=== PATIENT | female | born 1980 | race Caucasian/White ===

== ENCOUNTER 2019-08-07 12:55 | Emergency (ER) | payer MEDICAID, OTHER ==
[~2019-08-07] VITALS: Ht 177.8 cm; Wt 77.3 kg
[2019-08-07] MEDS ORDERED: FERR325T3 (13:05)
[2019-08-07] MEDS ORDERED: VENL37.598 (13:05)
[2019-08-07] MEDS ORDERED: ACETAMINOPHEN 325 MG TAB PO ONE (14:00)
[2019-08-07 14:39] LABS: HEMATOCRIT 41.4 % (36.0-47.0); HEMOGLOBIN 12.6 g/dl (12.0-15.5); MEAN CORPUSCULAR HEMOGLOBIN 23.3 pg (27.0-33.0); MEAN CORPUSCULAR HGB CONC 30.4 g/dl (32.0-36.5); MEAN CORPUSCULAR VOLUME 76.7 fl (80.0-96.0); PLATELET COUNT, AUTOMATED 306 10^3/uL (150-450); WHITE BLOOD COUNT 3.8 10^3/uL (4.0-10.0)
[2019-08-07 14:49] LABS: INR 1.06; PROTHROMBIN TIME 13.5 SECONDS (11.8-14.0)
[2019-08-07 15:20] LABS: ALBUMIN 4.4 GM/DL (3.2-5.2); ALT/SGPT 40 U/L (12-78); BILIRUBIN,DIRECT < 0.1 MG/DL (0.0-0.2); BILIRUBIN,TOTAL 0.2 MG/DL (0.2-1.0); BLOOD UREA NITROGEN 8 MG/DL (7-18); CALCIUM LEVEL 9.8 MG/DL (8.5-10.1); CARBON DIOXIDE LEVEL 27 MEQ/L (21-32); CHLORIDE LEVEL 104 MEQ/L (98-107); CREATININE FOR GFR 0.76 MG/DL (0.55-1.30); GLOMERULAR FILTRATION RATE > 60.0 (>60); GLUCOSE, FASTING 87 MG/DL (70-100); SODIUM LEVEL 138 MEQ/L (136-145); TOTAL PROTEIN 8.2 GM/DL (6.4-8.2)
--- NOTE | 2019-08-07 15:58 | REP ---
MRI lumbar spine without contrast: History: Loss of control of bowel and bladder. Weakness on the right. History of surgery due to prior cauda equina in 2014. No comparison images. Technique: Sagittal and axial T1 and T2-weighted scans are acquired in the usual fashion with and without fat saturation. Sequences include spin echo, turbo spin-echo, and STIR imaging sequences. MRI findings: No extra spinal abnormalities observed. The tip of the conus medullaris is normal in position and appearance at T12-L1. Lumbar vertebral body heights are preserved. Alignment is normal. There is no evidence of spondylolysis or spondylolisthesis. At L5-S1, there is degenerative narrowing of the disc. A right laminectomy defect is observed with post laminectomy enlargement of the thecal sac on the right side dorsal aspect. There are post discectomy changes in the right dorsal L5-S1 disc which is partially fused. There is discogenic spurring and mild diffuse disc bulging subtly indenting the ventral margin of the thecal sac. No nerve root displacement or compression is seen. Some granulation tissue is suspected on the right lateral aspect of the thecal sac just dorsal to the right S1 root. No deformity. There is facet hypertrophy bilaterally. There is minimal foraminal narrowing right greater than left. At L4-L5, there is mild decreased disc space height and signal intensity. Mild diffuse disc bulging is seen. There is facet hypertrophy bilaterally. No nerve root compression is appreciated. At L3-4 and L2-3 as well as at L1-2, there is no disc protrusion, central canal stenosis or foraminal narrowing. Impression: Post laminectomy changes on the right at L5-S1. There is some right lateral granulation tissue at this level. Facet hypertrophy is present and there is mild bilateral foraminal stenosis at L5-S1. Mild degenerative disc changes and facet changes are noted at L4-5 as well. Otherwise negative. Electronically Signed by Pranav Guerrero MD 08/07/2019 04:43 P
[2019-08-07] MEDS ORDERED: MORPHINE 2 MG/ML 1ML VIAL (J2270) IV ONE (16:30)
[2019-08-07 17:21] VITALS: BP 120/80
--- NOTE | 2019-08-12 13:23 | ED PDOC ---
Post-Departure Follow-Up [facility] faxed formal report of mri ls spine for fu Lai Shrestha MD Aug 12, 2019 13:23
== END 2019-08-07 17:25 | disposition home or self-care (01) ==
LOC: M ED 12:55
DX: M54.16 Radiculopathy, lumbar region (principal); Z88.8 Allergy status to other drugs, medicaments and biological substances
CPT/HCPCS: 72148; 80048; 80076; 85027; 85610; 96374; 96375; 99284; J2270; J3360

== ENCOUNTER 2019-09-02 10:05 | Observation (INO) | payer MEDICAID ==
[~2019-09-02] VITALS: Ht 177.8 cm; Wt 90.0 kg
[~2019-09-02 10:05] MED LIST: EFFE75CA2 PO; FERR325T3; IRON325T9 PO; LARI1TAB3 PO; LIDOCAINE 2% INJ 100 MG/5 ML SDV (FOR ANES.) As Ordered ONE; MIRA3350 PO; NS 1,000 ML IV ONE; PROPOFOL 200 MG/20 ML VIAL As Ordered ONE; TESS100C PO; TIZA6CAP6 PO; VENL37.598
[2019-09-02] MEDS ORDERED: fentaNYL 100 MCG/2 ML INJECTION (J3010) As Ordered ONE (10:54)
[2019-09-02] MEDS ORDERED: MIDAZOLAM INJ 2 MG/2 ML VIAL (J2250) As Ordered ONE (11:00)
[2019-09-02] MEDS ORDERED: PROPOFOL 200 MG/20 ML VIAL As Ordered ONE ×2 (11:16→11:30)
[2019-09-02] MEDS ORDERED: ONDANSETRON 4MG/2ML VIAL (J2405) As Ordered ONE (11:22)
[2019-09-02] MEDS ORDERED: METOCLOPRAMIDE INJ 10MG/2ML VIAL (J2765) As Ordered ONE (11:22)
--- NOTE | 2019-09-02 11:46 | ROOR ---
Patient Name: Kizzy Carrera Procedure Date: 09/02/2019 10:47 AM Date of : 1980 Age: 39 Room: [facility] Gender: Female Note Status: Finalized Procedure: Upper GI endoscopy Indications: Iron deficiency anemia, Dyspepsia Providers: Gorge Pichardo MD Referring MD: AYAD LINARES MD Requesting Provider: Medicines: Monitored Anesthesia Care Complications: No immediate complications. Procedure: Pre-Anesthesia Assessment: - Prior to the procedure, a History and Physical was performed, and patient medications and allergies were reviewed. The patient is competent. The risks and benefits of the procedure and the sedation options and risks were discussed with the patient. All questions were answered and informed consent was obtained. Patient identification and proposed procedure were verified by the physician, the nurse and the anesthesiologist in the procedure room. Mental Status Examination: alert and oriented. Airway Examination: normal oropharyngeal airway and neck mobility. Respiratory Examination: clear to auscultation. CV Examination: normal. Prophylactic Antibiotics: The patient does not require prophylactic antibiotics. Prior Anticoagulants: The patient has taken no previous anticoagulant or antiplatelet agents. ASA Grade Assessment: II - A patient with mild systemic disease. After reviewing the risks and benefits, the patient was deemed in satisfactory condition to undergo the procedure. The anesthesia plan was to use monitored anesthesia care (MAC). Immediately prior to administration of medications, the patient was re-assessed for adequacy to receive sedatives. The heart rate, respiratory rate, oxygen saturations, blood pressure, adequacy of pulmonary ventilation, and response to care were monitored throughout the procedure. The physical status of the patient was re-assessed after the procedure. The Endoscope was introduced through the mouth, and advanced to the second part of duodenum. The upper GI endoscopy was accomplished without difficulty. The patient tolerated the procedure well. Findings: The examined esophagus was normal. The Z-line was regular and was found 39 cm from the incisors. Scattered mild inflammation characterized by erythema and granularity was found in the gastric antrum. Biopsies were taken with a cold forceps for Helicobacter pylori testing. Verification of patient identification for the specimen was done by the physician and nurse using the patient's name, date and medical record number. Estimated blood loss was minimal. The duodenal bulb and second portion of the duodenum were normal. Biopsies for histology were taken with a cold forceps for evaluation of celiac disease. Impression: - Normal esophagus. - Z-line regular, 39 cm from the incisors. - Gastritis. Biopsied. - Normal duodenal bulb and second portion of the duodenum. Biopsied. Recommendation: - Patient has a contact number available for emergencies. The signs and symptoms of potential delayed complications were discussed with the patient. Return to normal activities tomorrow. Written discharge instructions were provided to the patient. - Resume previous diet. - Continue present medications. - Await pathology results. - Telephone GI clinic for pathology results in 2 weeks. - Return to primary care physician. Gorge Pichardo MD Gorge Pichardo MD 09/02/2019 11:46:28 AM Electronically signed by Gorge Pichardo MD Number of Addenda: 0 Note Initiated On: 09/02/2019 10:47 AM Estimated Blood Loss: Estimated blood loss was minimal.
--- NOTE | 2019-09-02 12:43 | ROOR ---
Patient Name: Kizzy Carrera Procedure Date: 09/02/2019 10:48 AM Date of : 1980 Age: 39 Room: [facility] Gender: Female Note Status: Finalized Procedure: Colonoscopy Indications: Clinically significant diarrhea of unexplained origin Providers: Gorge Pichardo MD Referring MD: AYAD LINARES MD Requesting Provider: Medicines: Monitored Anesthesia Care Complications: No immediate complications. Procedure: Pre-Anesthesia Assessment: - Prior to the procedure, a History and Physical was performed, and patient medications and allergies were reviewed. The patient is competent. The risks and benefits of the procedure and the sedation options and risks were discussed with the patient. All questions were answered and informed consent was obtained. Patient identification and proposed procedure were verified by the physician, the nurse and the anesthesiologist in the procedure room. Respiratory Examination: clear to auscultation. CV Examination: normal. Prophylactic Antibiotics: The patient does not require prophylactic antibiotics. Prior Anticoagulants: The patient has taken no previous anticoagulant or antiplatelet agents. ASA Grade Assessment: II - A patient with mild systemic disease. After reviewing the risks and benefits, the patient was deemed in satisfactory condition to undergo the procedure. The anesthesia plan was to use monitored anesthesia care (MAC). Immediately prior to administration of medications, the patient was re-assessed for adequacy to receive sedatives. The heart rate, respiratory rate, oxygen saturations, blood pressure, adequacy of pulmonary ventilation, and response to care were monitored throughout the procedure. The physical status of the patient was re-assessed after the procedure. The Colonoscope was introduced through the anus and advanced to the terminal ileum, with identification of the appendiceal orifice and IC valve. The colonoscopy was performed without difficulty. The patient tolerated the procedure well. The quality of the bowel preparation was good. The terminal ileum, ileocecal valve, appendiceal orifice, and rectum were photographed. Scope insertion time was 3 minutes. Scope withdrawal time was 9 minutes. The total duration of the procedure was 12 minutes. Findings: The perianal and digital rectal examinations were normal. The terminal ileum appeared normal. Normal mucosa was found in the entire colon. Biopsies for histology were taken with a cold forceps from the right colon, left colon and rectosigmoid colon for evaluation of microscopic colitis. Verification of patient identification for the specimen was done by the physician and nurse using the patient's name, date and medical record number. Estimated blood loss was minimal. Multiple small and large-mouthed diverticula were found from sigmoid to descending colon. There was no evidence of diverticular bleeding. Non-bleeding external and internal hemorrhoids were found during retroflexion. The hemorrhoids were small. Impression: - The examined portion of the ileum was normal. - Normal mucosa in the entire examined colon. Biopsied. - Moderate diverticulosis from sigmoid to descending colon. There was no evidence of diverticular bleeding. - Non-bleeding external and internal hemorrhoids. Recommendation: - Patient has a contact number available for emergencies. The signs and symptoms of potential delayed complications were discussed with the patient. Return to normal activities tomorrow. Written discharge instructions were provided to the patient. - High fiber diet. - Continue present medications. - Await pathology results. - Repeat colonoscopy at age 52 for screening purposes. - Telephone GI clinic for pathology results in 2 weeks. - Return to primary care physician. Gorge Pichardo MD Gorge Pichardo MD 09/02/2019 12:43:10 PM Electronically signed by Gorge Pichardo MD Number of Addenda: 0 Note Initiated On: 09/02/2019 10:48 AM Estimated Blood Loss: Estimated blood loss was minimal.
--- NOTE | 2019-09-02 13:48 | REP ---
Clinical: shortness of breath. Comparison: none. Findings: The mediastinum and cardiac silhouette are stable and within normal limits for portable technique. The lung garcia are clear without acute consolidation, effusion, or pneumothorax. Skeletal structures are intact. Impression: No acute cardiopulmonary process appreciated. Electronically Signed by Mike Lee MD 09/02/2019 01:40 P
[2019-09-02] MEDS ORDERED: LORazepam 2 MG TAB PO ONE (14:00)
[2019-09-02] MEDS ORDERED: hydrOXYzine 50 MG TAB PO PRN (15:30)
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
[2019-09-02 15:49] VITALS: BP 150/100
[2019-09-02 15:50] VITALS: BP 185/96
[2019-09-02 15:51] VITALS: BP 151/93
[2019-09-02 15:57] LABS: BASO # 0.1 10^3/uL (0.0-0.2); BASO % 0.7 % (0.0-1.0); EOS # 0.1 10^3/uL (0.0-0.5); EOS % 1.5 % (0.0-3.0); HEMATOCRIT 39.9 % (36.0-47.0); HEMOGLOBIN 12.3 g/dl (12.0-15.5); LYMPH # 1.4 10^3/uL (1.5-5.0); LYMPH % 19.8 % (24.0-44.0); MEAN CORPUSCULAR HEMOGLOBIN 24.2 pg (27.0-33.0); MEAN CORPUSCULAR HGB CONC 30.8 g/dl (32.0-36.5); MEAN CORPUSCULAR VOLUME 78.4 fl (80.0-96.0); MONO # 0.5 10^3/uL (0.0-0.8); MONO % 6.6 % (0.0-5.0); NEUTROPHILS # 4.9 10^3/uL (1.5-8.5); NEUTROPHILS % 71.1 % (36.0-66.0); PLATELET COUNT, AUTOMATED 301 10^3/uL (150-450); RED BLOOD COUNT 5.09 10^6/uL (4.00-5.40); WHITE BLOOD COUNT 6.8 10^3/uL (4.0-10.0)
[2019-09-02 16:00] VITALS: BP 150/100
[2019-09-02] MEDS ORDERED: amLODIPine 5 MG TAB PO ONE (16:00)
[2019-09-02 16:23] LABS: ALBUMIN 4.1 GM/DL (3.2-5.2); ALT/SGPT 20 U/L (12-78); BILIRUBIN,TOTAL 0.3 MG/DL (0.2-1.0); BLOOD UREA NITROGEN 4 MG/DL (7-18); CARBON DIOXIDE LEVEL 27 MEQ/L (21-32); CHLORIDE LEVEL 106 MEQ/L (98-107); CK-MB VALUE MASS < 1.0 NG/ML (<3.6); CPK CREATINE PHOSPHOKINASE 59 U/L (26-192); CREATININE FOR GFR 0.64 MG/DL (0.55-1.30); GLOMERULAR FILTRATION RATE > 60.0 (>60); GLUCOSE, FASTING 94 MG/DL (70-100); LIPASE 70 U/L (73-393); MAGNESIUM LEVEL 2.3 MG/DL (1.8-2.4); MB/CK RELATIVE INDEX 1.69 (< OR =4); POTASSIUM SERUM 3.6 MEQ/L (3.5-5.1); SODIUM LEVEL 140 MEQ/L (136-145); TOTAL PROTEIN 7.2 GM/DL (6.4-8.2); TROPONIN I < 0.02 NG/ML (< 0.10)
[2019-09-02] MEDS: NS 1,000 ML IV SCH (16:30)
[2019-09-02] MEDS ORDERED: hydrOXYzine 50 MG TAB PO ONE (18:15)
[2019-09-02] MEDS: tiZANidine 4 MG TAB PO PRN (18:23)
[2019-09-02] MEDS ORDERED: SLF 3 ML SYR IV PRN (18:30)
[2019-09-02] MEDS: SLF 3 ML SYR IV SCH (19:37)
--- NOTE | 2019-09-02 19:53 | ECGEPIP ---
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
[2019-09-02 20:00] VITALS: BP 125/61
[2019-09-02] MEDS: HEPARIN SOD (PORCINE) 5000 UNITS/ML VIAL SC SCH (21:17)
[2019-09-02] MEDS: RAMELTEON 8 MG TAB (ROZEREM) PO SCH (21:17)
[2019-09-02 22:32] LABS: CK-MB VALUE MASS < 1.0 NG/ML (<3.6); CPK CREATINE PHOSPHOKINASE 56 U/L (26-192); MB/CK RELATIVE INDEX 1.79 (< OR =4); TROPONIN I < 0.02 NG/ML (< 0.10)
[2019-09-02 23:59] VITALS: BP 132/73
[2019-09-03] VITALS (11 sets, daily range): BP systolic 106–162; BP diastolic 55–92
[2019-09-03] MEDS: hydrOXYzine 50 MG TAB PO PRN ×4 (00:23→18:20)
[2019-09-03] MEDS: tiZANidine 4 MG TAB PO PRN ×2 (00:23→09:19)
[2019-09-03 03:21] LABS: BASO # 0.1 10^3/uL (0.0-0.2); BASO % 0.9 % (0.0-1.0); EOS # 0.3 10^3/uL (0.0-0.5); EOS % 4.4 % (0.0-3.0); HEMATOCRIT 36.4 % (36.0-47.0); HEMOGLOBIN 11.4 g/dl (12.0-15.5); LYMPH # 1.8 10^3/uL (1.5-5.0); LYMPH % 31.4 % (24.0-44.0); MEAN CORPUSCULAR HEMOGLOBIN 24.6 pg (27.0-33.0); MEAN CORPUSCULAR HGB CONC 31.3 g/dl (32.0-36.5); MEAN CORPUSCULAR VOLUME 78.6 fl (80.0-96.0); MONO # 0.6 10^3/uL (0.0-0.8); MONO % 9.8 % (0.0-5.0); NEUTROPHILS % 53.3 % (36.0-66.0); PLATELET COUNT, AUTOMATED 288 10^3/uL (150-450); RED BLOOD COUNT 4.63 10^6/uL (4.00-5.40); WHITE BLOOD COUNT 5.7 10^3/uL (4.0-10.0)
[2019-09-03 03:53] LABS: BLOOD UREA NITROGEN 7 MG/DL (7-18); CALCIUM LEVEL 8.3 MG/DL (8.5-10.1); CARBON DIOXIDE LEVEL 26 MEQ/L (21-32); CHLORIDE LEVEL 108 MEQ/L (98-107); CK-MB VALUE MASS < 1.0 NG/ML (<3.6); CPK CREATINE PHOSPHOKINASE 42 U/L (26-192); CREATININE FOR GFR 0.76 MG/DL (0.55-1.30); GLOMERULAR FILTRATION RATE > 60.0 (>60); GLUCOSE, FASTING 138 MG/DL (70-100); MAGNESIUM LEVEL 2.1 MG/DL (1.8-2.4); MB/CK RELATIVE INDEX 2.38 (< OR =4); POTASSIUM SERUM 3.6 MEQ/L (3.5-5.1); SODIUM LEVEL 142 MEQ/L (136-145); TROPONIN I < 0.02 NG/ML (< 0.10)
[2019-09-03] MEDS: SLF 3 ML SYR IV SCH ×3 (04:25→20:28)
[2019-09-03] MEDS: NS 1,000 ML IV SCH ×2 (05:25→17:05)
[2019-09-03] MEDS: HEPARIN SOD (PORCINE) 5000 UNITS/ML VIAL SC SCH ×3 (05:26→20:27)
--- NOTE | 2019-09-03 06:45 | ECHO ---
DATE OF PROCEDURE: 09/02/2019 REFERRING PHYSICIAN: Franny Esquivel MD INDICATION: Syncope. HEIGHT: 178 cm. WEIGHT: 77 kg. DIMENSIONS: IVS 1.3 LV 4.6 LVPW 1.2 LA 3.4 Aorta 2.9 IVC 1.7 Mitral E wave velocity 85, A-wave 80 E prime septal 8.0 E prime lateral 11.5 FINDINGS: The study is of acceptable technical quality. The patient is in sinus rhythm. Left ventricle is normal size and systolic function with estimated LVEF 65-70%. Mild LVH is noted. Right ventricle is normal size and systolic function. Both atria appear normal. All four cardiac valves were reasonably well seen and appear normal. Trivial pericardial effusion is noted. Inferior vena cava is normal size. Aortic root, aortic arch and visualized segment of abdominal aorta appear normal. Doppler interrogation reveals competent aortic valve. There is trace mitral, tricuspid and pulmonic insufficiency. Mitral inflow pattern and tissue Doppler imaging of mitral annulus reveal normal diastolic function. CONCLUSIONS: 1. Study is of acceptable technical quality, the patient is in sinus rhythm. 2. Normal LV size with mild LVH and preserved LV systolic and diastolic function. 3. No hemodynamically significant valvular disease. 4. Likely normal central venous pressure. Unable to estimate pulmonary artery pressure. 5. Trivial pericardial effusion. COMMENTS: SBE prophylaxis is not recommended. No findings to explain syncopal event. MTDD
[2019-09-03] MEDS ORDERED: VENLAFAXINE 37.5 MG TAB PO SCH (09:00)
[2019-09-03] MEDS: amLODIPine 5 MG TAB PO SCH (09:19)
--- NOTE | 2019-09-03 12:26 | IPNPDOC ---
Text Note Date of Service The patient was seen on 09/03/19. NOTE Subjective: Patient is a 39-year-old female with past history of vWF deficiency, anxiety and PTSD who presented to [facility] for an elective EGD and colonoscopy with Dr. Pichardo. Patient arrived to the procedure, at 10:15 AM and had a blood pressure of 170s over 100 procedure started at patient received 1000 mg of propofol, 50 g of fentanyl, and 2 mg Versed to keep her sedated. Procedure was uneventful and completed as planned. Postprocedure, patient immediately woke up despite large doses of sedatives. Patient was found to have a systolic blood pressure 200s and had had some improvement down to 170s. Patient was subsequently discharged. Upon sitting up in bed. Patient had felt weak and passed out while in the stretcher. . There is no head trauma and patient immediately awoke. Patient does not remember the events entirely. Patient has reported episodes of passing out several times over the last week. Patient was seen and examined at the bedside. Patient reports that she feels better this morning. However, when working with physical therapy she described lightheadedness. She denies any chest pain, shortness of breath or palpitations. Denies nausea, vomiting, abdominal pain, constipation, or urinary discomfort. Objective: Vitals (See below) General: Lying in bed, no acute distress, comfortable, AAOx3 HEENT: NC, AT CVS: RRR, +S1S2 Lungs: Fair air entry b/l, auscultation is without rhonchi, rales or wheezing Abdomen: Soft, nondistended and nontender Extremities: - Edema, - Calf tenderness Assessment and plan: Syncope - likely 2/2 orthostatic hypotension - likely 2/2 Venlafaxine - Patient was reported to have a syncopal episode after standing up post- procedure in the recovery room - CXR 09/02: No acute cardiopulmonary process appreciated. - EKG was reviewed by myself and does not reveal any ischemic changes - Lab work is benign - Troponin x 3 negative - ECHO 09/02: Normal systolic and diastolic function, normal CVP, chills. Review pericardial effusion - c/w Telemetry monitoring - s/p Venlafaxine - c/w IV fluid hydration - c/w PT tomorrow s/p Hypertensive urgency - BP was significantly elevated at 170s; currently remains well controlled - Patient has not been on any medications as an outpatient - c/w Amlodipine Anxiety - c/w Venlafaxine from home - Has a history of being on Xanax 1mg; however has not been prescribed this since 05/[address] Arana in [place] - c/w Hydroxyzine alone at this time DVT prophylaxis - c/w Heparin Disposition: - Anticipate discharge tomorrow morning VS,Richardbone, I+O VS, Richardbone, I+O Laboratory Tests 09/02/19 15:42 09/03/19 03:11 Vital Signs Date Time Temp Pulse Resp B/P (MAP) Pulse Ox O2 Delivery O2 Flow Rate FiO2 09/03/19 08:00 97.1 80 17 131/72 (91) 98 Room Air 09/02/19 15:30 2 I&O- Last 24 Hours up to 6 AM 09/03/19 06:00 Intake Total 1960 ml Balance 1960 ml EDY LINARES MD Sep 03, 2019 12:26
[2019-09-03] MEDS ORDERED: tiZANidine 4 MG TAB PO ONE ×2 (17:30→21:00)
[2019-09-03] MEDS: ACETAMINOPHEN TAB 650MG DOSE (2X325MG) PO PRN (17:42)
[2019-09-03] MEDS: RAMELTEON 8 MG TAB (ROZEREM) PO SCH (20:28)
[2019-09-03] MEDS ORDERED: PILL CUTTER 1 EACH XX PRN (21:00)
[2019-09-04] MEDS: hydrOXYzine 50 MG TAB PO PRN ×2 (01:32→08:58)
[2019-09-04] MEDS: NS 1,000 ML IV SCH (03:00)
[2019-09-04 04:00] VITALS: BP 140/90
[2019-09-04] MEDS: SLF 3 ML SYR IV SCH (05:21)
[2019-09-04] MEDS: HEPARIN SOD (PORCINE) 5000 UNITS/ML VIAL SC SCH (05:21)
[2019-09-04 05:51] LABS: BASO # 0.1 10^3/uL (0.0-0.2); EOS # 0.3 10^3/uL (0.0-0.5); EOS % 5.8 % (0.0-3.0); HEMATOCRIT 36.8 % (36.0-47.0); HEMOGLOBIN 11.1 g/dl (12.0-15.5); LYMPH # 1.8 10^3/uL (1.5-5.0); LYMPH % 36.9 % (24.0-44.0); MEAN CORPUSCULAR HEMOGLOBIN 24.2 pg (27.0-33.0); MEAN CORPUSCULAR HGB CONC 30.2 g/dl (32.0-36.5); MEAN CORPUSCULAR VOLUME 80.2 fl (80.0-96.0); MONO # 0.4 10^3/uL (0.0-0.8); MONO % 8.9 % (0.0-5.0); NEUTROPHILS # 2.3 10^3/uL (1.5-8.5); NEUTROPHILS % 47.2 % (36.0-66.0); PLATELET COUNT, AUTOMATED 247 10^3/uL (150-450); RED BLOOD COUNT 4.59 10^6/uL (4.00-5.40); WHITE BLOOD COUNT 4.8 10^3/uL (4.0-10.0)
[2019-09-04 06:12] LABS: BLOOD UREA NITROGEN 7 MG/DL (7-18); CALCIUM LEVEL 8.7 MG/DL (8.5-10.1); CARBON DIOXIDE LEVEL 23 MEQ/L (21-32); CHLORIDE LEVEL 110 MEQ/L (98-107); CREATININE FOR GFR 0.62 MG/DL (0.55-1.30); GLOMERULAR FILTRATION RATE > 60.0 (>60); GLUCOSE, FASTING 94 MG/DL (70-100); MAGNESIUM LEVEL 1.7 MG/DL (1.8-2.4); POTASSIUM SERUM 3.7 MEQ/L (3.5-5.1); SODIUM LEVEL 140 MEQ/L (136-145)
[2019-09-04 07:27] VITALS: BP 134/79
[2019-09-04] MEDS ORDERED: MAGNESIUM OXIDE 400 MG TAB (MAG-OX) PO ONE (08:00)
[2019-09-04] MEDS ORDERED: TIZA6CAP6 PO (08:25)
[2019-09-04] MEDS ORDERED: HYDR100C PO (08:26)
[2019-09-04] MEDS ORDERED: AMLO5TAB6 PO (08:26)
[2019-09-04] MEDS ORDERED: TIZA6CAP PO (08:27)
[2019-09-04 08:59] VITALS: BP 134/79
[2019-09-04] MEDS: amLODIPine 5 MG TAB PO SCH (08:59)
[2019-09-04] MEDS: ACETAMINOPHEN TAB 650MG DOSE (2X325MG) PO PRN (09:17)
--- NOTE | 2019-09-04 09:23 | DS.PDOC ---
Discharge Summary General Date of Admission 09/02/2019 Date of Discharge 09/04/2019 Discharge Summary PROCEDURES PERFORMED DURING STAY: EGD / Colonoscopy with Dr. Pichardo on 09/02 ADMITTING DIAGNOSES / DISCHARGE DIAGNOSES: Syncope - likely 2/2 orthostatic hypotension - likely 2/2 Venlafaxine s/p Hypertensive urgency Anxiety Chronic back pain DVT prophylaxis COMPLICATIONS/CHIEF COMPLAINT: Syncope HISTORY OF PRESENT ILLNESS: Patient is a 39-year-old female with past history of vWF deficiency, anxiety and PTSD who presented to [facility] for an elective EGD and colonoscopy with Dr. Pichardo. Patient arrived to the procedure, at 10:15 AM and had a blood pressure of 170s over 100 procedure started at patient received 1000 mg of propofol, 50 g of fentanyl, and 2 mg Versed to keep her sedated. Procedure was uneventful and completed as planned. Postprocedure, patient immediately woke up despite large doses of sedatives. Patient was found to have a systolic blood pressure 200s and had had some improvement down to 170s. Patient was subsequently discharged. Upon sitting up in bed. Patient had felt weak and passed out while in the stretcher. . There is no head trauma and patient immediately awoke. Patient does not remember the events entirely. Patient has reported episodes of passing out several times over the last week. Patient was admitted to the hospitalist service for evaluation of syncope. HOSPITAL COURSE: Syncope - likely 2/2 orthostatic hypotension - likely 2/2 Venlafaxine - Patient was reported to have a syncopal episode after standing up post- procedure in the recovery room - CXR 09/02: No acute cardiopulmonary process appreciated. - EKG was reviewed by myself and does not reveal any ischemic changes - Lab work is benign - Troponin x 3 negative - ECHO 09/02: Normal systolic and diastolic function, normal CVP, chills. Review pericardial effusion - c/w Telemetry monitoring - s/p Venlafaxine - Will DC IV fluid hydration - Cleared PT today s/p Hypertensive urgency - BP is much better controlled - Patient has not been on any medications as an outpatient - c/w Amlodipine Anxiety - Will DC Venlafaxine from home - Has a history of being on Xanax 1mg; however has not been prescribed this since 05/[address] Arana in [place] - no other Prescribers found - c/w Hydroxyzine alone at this time Chronic back pain - c/w Tylenol PRN - Advised to reduce frequency of Tizanidine; has been on 6mg TID as an outpatient; advised reduction to BID and only as needed DVT prophylaxis - c/w Heparin DISCHARGE MEDICATIONS: Please see below. ALLERGIES: Please see below. PHYSICAL EXAMINATION ON DISCHARGE: Vitals (See below) General: Lying in bed, no acute distress, comfortable, AAOx3 HEENT: NC, AT CVS: +S1S2 Lungs: Fair air entry b/l, there is no evidence of rhonchi, rales or wheezing on auscultation Abdomen: Remains soft without any distention / tenderness Extremities: No evidence of LE edema, - Calf tenderness LABORATORY DATA: Please see below. ACTIVITY: [As tolerated]. DISCHARGE PLAN: Follow up with Dr. Willian Linares and Dr. Antonia Pichardo within 7 days Remain compliant with treatment plan and medications Return to the ER if you experience any problems DISPOSITION: Home DISCHARGE CONDITION: [Stable]. TIME SPENT ON DISCHARGE: 25 minutes Vital Signs/I&Os Vital Signs Date Time Temp Pulse Resp B/P (MAP) Pulse Ox O2 Delivery O2 Flow Rate FiO2 09/04/19 08:59 65 134/79 09/04/19 07:27 97.2 18 97 Room Air 09/02/19 15:30 2 I&O- Last 24 Hours up to 6 AM 09/04/19 05:59 Intake Total 3780 ml Output Total 0 ml Balance 3780 ml Laboratory Data Labs 24H Laboratory Tests 2 09/04/19 05:06: Immature Granulocyte % (Auto) 0.2, Neutrophils (%) (Auto) 47.2, Lymphocytes (%) (Auto) 36.9, Monocytes (%) (Auto) 8.9H, Eosinophils (%) (Auto) 5.8H, Basophils (%) (Auto) 1.0, Neutrophils # (Auto) 2.3, Lymphocytes # (Auto) 1.8, Monocytes # (Auto) 0.4, Eosinophils # (Auto) 0.3, Basophils # (Auto) 0.1, Nucleated Red Blood Cells % (auto) 0.0, Anion Gap 7L, Glomerular Filtration Rate > 60.0, Calcium Level 8.7, Magnesium Level 1.7L CBC/BMP Laboratory Tests 09/04/19 05:06 Discharge Medications Scheduled Amlodipine Besylate (Amlodipine Besylate) 5 Mg Tablet, 5 MG PO DAILY Ferrous Sulfate (Iron) 325 Mg Tablet, 325 MG PO DAILY, (Reported) Norethindrone-E.estradiol-Iron (Iqra Fe 1-20 Tablet) 1 Each Tablet, 1 TAB PO DAILY, (Reported) if bleeding heavily with period takes 4 per day Scheduled PRN Hydroxyzine Pamoate (Hydroxyzine Pamoate) 100 Mg Capsule, 100 MG PO TIDP PRN for ANXIETY Polyethylene Glycol 3350 (Miralax) 119 Gm Powder, 17 GM PO DAILY PRN for CONSTIPATION, (Reported) dilute in 8 ounces of water or juice Tizanidine HCl (Tizanidine HCl) 6 Mg Capsule, 1 CAP PO TIDP PRN for BACK PAIN Allergies Coded Allergies: metoclopramide (Verified Allergy, Severe, throat closed, 08/28/19) aspirin (Verified Allergy, Unknown, due to VonWillebrand's disease, 08/28/19) EDY LINARES MD Sep 04, 2019 09:23
== END 2019-09-04 10:20 | disposition home or self-care (01) ==
LOC: M PCU 10:05 → M OPP 10:05 → EDSTATUS 10:15 → M PCU 15:49 → M OPP 15:49 → M PCU 09-04 10:20
PROVIDERS: ADMIT Internal Medicine Gastroenterology; ATTEND Internal Medicine Gastroenterology
DX: K29.70 Gastritis, unspecified, without bleeding (principal); D50.9 Iron deficiency anemia, unspecified; R10.13 Epigastric pain; Z83.79 Family history of other diseases of the digestive system; R19.7 Diarrhea, unspecified; K57.30 Diverticulosis of large intestine without perforation or abscess without bleeding; K64.8 Other hemorrhoids; K64.4 Residual hemorrhoidal skin tags; R11.2 Nausea with vomiting, unspecified; R55 Syncope and collapse; I16.0 Hypertensive urgency; F41.9 Anxiety disorder, unspecified; M54.9 Dorsalgia, unspecified; G89.29 Other chronic pain; F43.10 Post-traumatic stress disorder, unspecified; F32.9 Major depressive disorder, single episode, unspecified; D68.0 Von Willebrand disease; K59.00 Constipation, unspecified; K21.9 Gastro-esophageal reflux disease without esophagitis; Z86.14 Personal history of Methicillin resistant Staphylococcus aureus infection; Z79.899 Other long term (current) drug therapy; Z88.8 Allergy status to other drugs, medicaments and biological substances; Z88.6 Allergy status to analgesic agent; F17.290 Nicotine dependence, other tobacco product, uncomplicated
CPT/HCPCS: 36415; 43239; 45380; 71045; 80048; 80053; 82550; 82553; 83605; 83690; 83735; 85025; 88305; 93005; 93306; 96372; 97161; 97530; J2250; J2405; J2765; J3010